=== PATIENT | male | born 1950 | race Caucasian/White ===

== ENCOUNTER 2021-07-13 08:55 | Outpatient (CLI) | payer MEDICARE, MEDICAID ==
[~2021-07-13 08:55] MED LIST: ALBU8.5H17 INH; ASPI-611 PO; ATEN50TA PO; DOCU100C41 PO; FLUT1DIS7 INH; LEVE10002 PO; LISI20TA28 PO; PANT-47 PO
== END 2021-07-13 23:59 | disposition home or self-care (01) ==
LOC: RAD 08:55
PROVIDERS: ATTEND Psychiatry & Neurology Neurology
DX: G43.719 Chronic migraine without aura, intractable, without status migrainosus (principal); R56.9 Unspecified convulsions
CPT/HCPCS: 95816